=== PATIENT | male | born 1970 | race Caucasian/White ===

== ENCOUNTER → 2018-09-25 | Outpatient (CLI) | payer OTHER ==
--- NOTE | 2018-09-25 16:24 | XR ---
EXAMINATION TYPE: XR hand complete LT DATE OF EXAM: 09/25/2018 COMPARISON: None HISTORY: Laceration third digit crush injury TECHNIQUE: Left hand is examined in 3 views. Patient was unable to remove ring from the ring finger. FINDINGS: Soft tissue injury is over the distal middle finger. No acute fractures are identified. Mattie nt spaces appear preserved. Remaining soft tissues are unremarkable. IMPRESSION: 1. Soft tissue injury distal middle finger. 2. No acute osseous abnormality is evident.
== END | disposition home or self-care (01) ==
LOC: RADXRMAIN 16:01
PROVIDERS: ATTEND Emergency Medicine
DX: S69.92XA Unspecified injury of left wrist, hand and finger(s), initial encounter (principal)